=== PATIENT | female | born 1990 | race Asian ===

== ENCOUNTER 2017-09-28 21:17 | Emergency (ER) | payer OTHER ==
[~2017-09-28 21:17] MED LIST: PREN1CAP7 PO; ZANT150T2 PO
--- NOTE | 2017-09-28 22:37 | PD ---
HPI Chief Complaint ctxs Date Seen: Sep 28, 2017 Time Seen: 22:26 Travel History International Travel<30 Days: No Contact w/Intl Traveler<30Days: No Known Affected Area: No History of Present Illness HPI pt. is a @ 40 weeks present w/ c/o ctxs. pt. 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 pt. states contractions thruout the day and have increased in freq and intensity. +FM, no lof/vb. pt. cervix 1-/high. no change during monitoring period. Weeks Gestation: 40 Para: 0 : 1 History Past Medical History Medical History: Denies Significant Hx Obstetric History Obstetric History Past Surgical History Surgical History: No Previous Surgery Family History Family History: Negative Social History Alcohol Use: No Tobacco Use: No Substance Abuse: No Allergies-Medications (Allergen,Severity, Reaction): Coded Allergies: No Known Allergies (Verified Adverse Reaction, Unknown, 09/28/17) Home Meds Active Scripts Ranitidine (Zantac) 150 Mg Tab, 150 MG PO BID for Reduce Stomach Acid, #60 TAB 7 Refills Prov:Jessica VazquezP 06/13/17 W/O Vit A W/ Fe Fumar (Citranatal [place]) 27-1-260 Mg Cap, 1 CAP PO DAILY for Nutritional Supplement, #30 CAP 3 Refills Prov:Jessica Vazquez [facility] 06/13/17 W/O Vit A W/ Fe Fumar (Citranatal [place]) 27-1-260 Mg Cap, 1 CAP PO DAILY for Nutritional Supplement, #30 CAP 4 Refills Prov:Lupe Ch CNM [facility] 03/28/17 Review of Systems Except as stated in HPI: all other systems reviewed are Neg Physical Exam Narrative GENERAL: Well-nourished, well-developed patient. SKIN: Warm and dry. HEAD: Normocephalic and atraumatic. EYES: No scleral icterus. No injection or drainage. ENT: No nasal drainage noted. Mucous membranes pink. Airway patent. NECK: Supple, trachea midline. No JVD. CARDIOVASCULAR: Regular rate and rhythm without murmurs, gallops, or rubs. RESPIRATORY: Breath sounds equal bilaterally. No accessory muscle use. BREASTS: Bilateral exam showed no masses , no retractions, no nipple discharge. ABDOMEN/GI: Abdomen soft, non-tender, bowel sounds present, no rebound, no guarding Gravid GENITOURINARY: External Genitalia: intact and normal in appearance Dilatation: 1-2 Effacement: 90 Station: high Uterine Contractions: q9 min FHT's: Category: 1 Reactive:+ Variability: mod EXTREMITIES: No cyanosis or edema. BACK: Nontender without obvious deformity. No CVA tenderness. NEUROLOGICAL: Awake and alert. Motor and sensory grossly within normal limits. Five out of 5 muscle strength in all muscle groups. Normal speech. Data Data Vital Signs Reviewed: Yes Orders Orders Hearing Screen Coordinator Clear For Discharge (09/28/17 ) [facility] Medical Record Reviewed: Yes Plan pt. to be d/c to home. not in active labor. fht reassuring. condition d/w pt thru still operator whiskey. all ? answered. given precautions for return. f/u as sched. Stu Mckeon Jr., MD Sep 28, 2017 22:37
== END 2017-09-28 22:54 | disposition home or self-care (01) ==
LOC: HOBED 21:17
DX: O26.893 Other specified pregnancy related conditions, third trimester (principal); Z3A.40 40 weeks gestation of pregnancy
CPT/HCPCS: 99284

== ENCOUNTER 2017-09-29 03:18 | Inpatient (IN) | payer OTHER ==
[2017-09-29] VITALS (149 sets, daily range): BP systolic 75–131; BP diastolic 34–86; PULSE 81–194; RESP 16–20; TEMP 98.1–98.8; O2SAT 97–98
[~2017-09-29] VITALS: Ht 160 cm; Wt 63.0 kg
[2017-09-29] MEDS ORDERED: fentaNYL 2MCG-BUPIV 0.125% INJ 100 ML ONE (04:37)
[2017-09-29] MEDS ORDERED: ePHEDrine/NS 25 MG/5 ML SYRINGE ONE (04:37)
[2017-09-29] MEDS ORDERED: LACTATED RINGER'S 1000 ML INJ 1,000 ML IV PRN (04:40)
[2017-09-29] MEDS: LACTATED RINGER'S 1000 ML INJ 1,000 ML IV SCH ×2 (04:40→10:58)
[2017-09-29] MEDS ORDERED: OXYTOCIN 30 UNITS-500ML PREMIX 500 ML IV ONE (04:45)
[2017-09-29] MEDS ORDERED: MINERAL OIL 10 ML VIAL TOPICAL PRN (04:45)
[2017-09-29] MEDS ORDERED: CITRIC ACID-SODIUM CITRATE LIQ 30 ML UDC PO SCH (04:45)
[2017-09-29] MEDS ORDERED: LIDOCAINE HCL 1% 50 ML VIAL I-DERMAL PRN (04:45)
[2017-09-29] MEDS ORDERED: LIDOCAINE HCL 1% 50 ML VIAL INFIL PRN (04:45)
[2017-09-29] MEDS ORDERED: SODIUM CHLORID 0.9% 500 ML INJ 500 ML IV PRN (04:45)
[2017-09-29 04:49] LABS: AUTOMATED NEUTROPHIL # 15.2 TH/MM3 (1.8-7.7); BASOPHIL % 0.2 % (0.0-2.0); EOSINOPHIL % 0.1 % (0.0-4.0); HEMATOCRIT 39.7 % (35.0-46.0); HEMOGLOBIN 13.4 GM/DL (11.6-15.3); LYMPH % 7.8 % (9.0-44.0); LYMPHOCYTE # 1.3 TH/MM3 (1.0-4.8); MEAN CELL VOLUME 92.8 FL (80.0-100.0); MEAN CORPUSCULAR HEMOGLOBIN 31.3 PG (27.0-34.0); MEAN CORPUSCULAR HGB CONC 33.7 % (32.0-36.0); MEAN PLATELET VOLUME 8.8 FL (7.0-11.0); MONO % 3.1 % (0.0-8.0); MONOCYTE # 0.5 TH/MM3 (0-0.9); NEUT % 88.8 % (16.0-70.0); PLATELET COUNT 295 TH/MM3 (150-450); RED BLOOD COUNT 4.28 MIL/MM3 (4.00-5.30); RED CELL DISTRIBUTION WIDTH 13.8 % (11.6-17.2); WHITE BLOOD COUNT 17.1 TH/MM3 (4.0-11.0)
--- NOTE | 2017-09-29 04:49 | HHI.HP ---
History & Physical H&P HPI Chief Complaint ctxs Date Seen: Sep 29, 2017 Time Seen: 04:43 Travel History International Travel<30 Days: No Contact w/Intl Traveler<30Days: No Known Affected Area: No History of Present Illness HPI pt. is a 27 y/o @ 40 1/7 weeks present w/ c/o ctxs. pt. seen earlier for ctxs, and now she says they are more frequent and more intense. +FM, no lof/ vb. pt. cervix 5/80/-2 Weeks Gestation: 40 Para: 0 : 1 History (Limited) History Past Medical History Medical History: Denies Significant Hx Obstetric History Obstetric History Past Surgical History Surgical History: No Previous Surgery Family History Family History: Negative Social History Alcohol Use: No Tobacco Use: No Substance Abuse: No Allergies-Medications Allergies-Medications (Allergen,Severity, Reaction): Coded Allergies: No Known Allergies (Verified Adverse Reaction, Unknown, 09/29/17) Home Meds Active Scripts W/O Vit A W/ Fe Fumar (Citranatal [place]) 27-1-260 Mg Cap, 1 CAP PO DAILY for Nutritional Supplement, #30 CAP 3 Refills Prov:Jessica Vazquez [facility] 06/13/17 W/O Vit A W/ Fe Fumar (Citranatal [place]) 27-1-260 Mg Cap, 1 CAP PO DAILY for Nutritional Supplement, #30 CAP 4 Refills Prov:Lupe Ch CNM [facility] 03/28/17 Discontinued Scripts Ranitidine (Zantac) 150 Mg Tab, 150 MG PO BID for Reduce Stomach Acid, #60 TAB 7 Refills Prov:Jessica Vazquez [facility] 06/13/17 ROS Review of Systems Except as stated in HPI: all other systems reviewed are Neg Physical Exam Physical Exam Narrative GENERAL: Well-nourished, well-developed patient. SKIN: Warm and dry. HEAD: Normocephalic and atraumatic. EYES: No scleral icterus. No injection or drainage. ENT: No nasal drainage noted. Mucous membranes pink. Airway patent. NECK: Supple, trachea midline. No JVD. CARDIOVASCULAR: Regular rate and rhythm without murmurs, gallops, or rubs. RESPIRATORY: Breath sounds equal bilaterally. No accessory muscle use. BREASTS: Bilateral exam showed no masses , no retractions, no nipple discharge. ABDOMEN/GI: Abdomen soft, non-tender, bowel sounds present, no rebound, no guarding Gravid GENITOURINARY: External Genitalia: intact and normal in appearance Dilatation: 5 Effacement: 80 Station: high Membranes: intact Uterine Contractions:q2 mins FHT's: Category: 1 Reactive: + Variability: mod EXTREMITIES: No cyanosis or edema. BACK: Nontender without obvious deformity. No CVA tenderness. NEUROLOGICAL: Awake and alert. Motor and sensory grossly within normal limits. Five out of 5 muscle strength in all muscle groups. Normal speech. Data Data Data Vital Signs Reviewed: Yes Orders Orders Ob (2e) Additional Admit Info (09/29/17 03:55) Complete Blood Count With Diff (09/29/17 04:32) Abo/Rh Blood Type (09/29/17 04:32) Hold Clot (09/29/17 04:32) Ob/Psych Drug Screen, Urine (09/29/17 04:32) Urinalysis - C+S If Indicated (09/29/17 04:32) Specimen To Be Collected PRN (09/29/17 04:32) Fentanyl 2mcg-Bupiv 0.125% Inj (Fentanyl (09/29/17 04:37) Ephedrine/Ns 25 Mg/5 Ml Syr (Ephedrine/N (09/29/17 04:37) Code Status (09/29/17 04:40) Vital Signs (Adult) .Per protocol (09/29/17 04:40) Activity Oob Ad Saranya (09/29/17 04:40) Heart (09/29/17 04:40) Amnioinfusion (09/29/17 04:40) Urinary Catheter Management .ONCE (09/29/17 04:40) Diet Liquid (09/29/17 Breakfast) Lactated Ringer's 1000 Ml Inj (Lr 1000 M (09/29/17 04:40) Lactated Ringer's 1000 Ml Inj (Lr 1000 M (09/29/17 04:40) Sodium Chlorid 0.9% 500 Ml Inj (Ns 500 M (09/29/17 04:45) Sodium Chlor 0.9% 1000 Ml Inj (Ns 1000 M (09/29/17 05:00) Lidocaine 1% Inj (50 Ml) (Xylocaine 1% I (09/29/17 04:45) Citric Acid-Sodium Citrate Liq (Bicitra (09/29/17 04:45) Fentanyl Inj (Fentanyl Inj) (09/29/17 04:45) Fentanyl Inj (Fentanyl Inj) (09/29/17 04:45) Resp Oxygen Non Rebreathe Mask (09/29/17 ) ^ Epidural / Intrathecal Infus (09/29/17 04:40) Oxytocin 30 Units-500ml Premix (Pitocin (09/29/17 04:45) Lidocaine 1% Inj (50 Ml) (Xylocaine 1% I (09/29/17 04:45) Light Mineral Oil (Muri-Lube Oil) (09/29/17 04:45) Group B Strep: Negative Labs Laboratory Tests Test 09/29/17 03:35 09/29/17 03:58 MDM MDM Medical Record Reviewed: Yes Plan pt. in active labor. pt. to be admitted. fht reassuring. fentanyl vs epidural for pain. expect . will continue to monitor. Diagnosis Diagnosis: Primary Impression: Uterine contractions during Additional Impression: 40 weeks gestation of Stu Mckeon Jr., MD Sep 29, 2017 04:49
[2017-09-29] MEDS ORDERED: SODIUM CHLOR 0.9% 1000 ML INJ 1,000 ML IV PRN (05:00)
[2017-09-29 05:06] LABS: BACTERIA, URINE RARE /hpf; BILIRUBIN, URINE NEG (NEG); BLOOD, URINE MOD (NEG); GLUCOSE,URINE NEG (NEG); KETONE, URINE NEG (NEG); MUCUS URINE FEW /lpf (OCC); NITRITE,URINE NEG (NEG); SQUAMOUS EPITHELIAL CELL URINE 4 /hpf (0-5); URINE COLOR LIGHT-YELLOW (YELLW/STRAW); URINE LEUKOCYTE ESTERASE MOD (NEG)
[2017-09-29] MEDS ORDERED: fentaNYL 2MCG-BUPIV 0.125% 100 ML EPIDURAL SCH (05:45)
[2017-09-29] MEDS ORDERED: DO NOT ADMINISTER ANTICOAGULANTS PRN (05:45)
[2017-09-29] MEDS ORDERED: NO SYSTEM NARCOTICS PRN (05:45)
[2017-09-29] MEDS ORDERED: ePHEDrine/NS 25 MG/5 ML SYRINGE IV PUSH PRN (05:45)
[2017-09-29] MEDS ORDERED: PHENYLEPH/NS 1000 MCG/10 ML SYR ONE (07:26)
[2017-09-29] MEDS ORDERED: PHENYLEPH/NS 1000 MCG/10 ML SYR IV PRN (11:00)
[2017-09-29] MEDS ORDERED: OXYTOCIN 30 UNITS-500ML PREMIX 500 ML IV PRN (11:00)
[2017-09-29] MEDS ORDERED: LIDOCAINE HCL 1% PF 30 ML VIAL ONE (12:48)
[2017-09-29] MEDS ORDERED: WITCH HAZEL 50%/GLYCERIN 12.5% 40 PAD JAR TOPICAL PRN (14:00)
[2017-09-29] MEDS ORDERED: SODIUM CHLORIDE 0.9% FLUSH 10 ML FLUSH IV FLUSH PRN (14:00)
[2017-09-29] MEDS ORDERED: DOCUSATE SODIUM 50 MG/SENNA 8.6 MG TAB PO PRN (14:00)
[2017-09-29] MEDS ORDERED: ALUMINUM/MAGNESIUM/SIMETH 30 ML CUP PO PRN (14:00)
[2017-09-29] MEDS ORDERED: ONDANSETRON ODT 4 MG TAB PO PRN (14:00)
[2017-09-29] MEDS ORDERED: ZOLPIDEM TARTRATE 5 MG TAB PO PRN (14:00)
[2017-09-29] MEDS ORDERED: BENZOCAINE 20% TOPICAL SPRAY 60 ML CAN TOPICAL PRN (14:00)
[2017-09-29] MEDS ORDERED: IBUPROFEN 800 MG TAB PO PRN (14:00)
[2017-09-29] MEDS ORDERED: ACETAMINOPHEN 325 MG TAB PO PRN (14:00)
[2017-09-29] MEDS ORDERED: OXYTOCIN 30 UNITS-500ML PREMIX 500 ML IV SCH (14:00)
--- NOTE | 2017-09-29 14:09 | PD.OB.DELI ---
Weeks gestation: 40 Medical induction start date: Sep 29, 2017 Medical induction start time: 10:30 Anesthesia: Epidural Episiotomy: None Vaginal Delivery: Normal, Spontaneous Presentation: Occiput anterior, Vertex Nuchal Cord: x1 Delayed cord clamping (45 sec): Yes Infant: Female, Single Delivery date: Sep 29, 2017 Delivery time: 13:32 One Minute : 8 Five Minute : 9 Weight: 2645g Placenta: Spontaneous delivery, Intact Laceration: Perineal laceration, 2 deg Repair: Vicryl running Estimated blood loss: 300cc Additional Information Dr Montoya supervised, Dr Turpin delivered and Dr Jh Jacob assisted. There was a 2nd degree vaginal and perineal laceration repaired with vicryl running and a right labial laceration repaired with vicryl interrupted sutures. Lidocaine local anesthesia was injected due to pt feeling some pressure vs pain during suturing. Elbert Turpin MD R1 Sep 29, 2017 14:09
[2017-09-29] MEDS ORDERED: DIPHTH/TETANUS/ACEL PERTUSSIS (BOOSTER) 0.5 ML VIAL/PFS IM ONE (16:00)
[2017-09-29] MEDS ORDERED: MEASLES, MUMPS, RUBELLA VACCINE 0.5 ML VIAL SQ ONE (16:00)
[2017-09-29] MEDS ORDERED: SODIUM CHLORIDE 0.9% FLUSH 10 ML FLUSH IV FLUSH SCH (21:00)
[2017-09-30 08:16] VITALS: BP 96/61; PULSE 59; RESP 16; TEMP 98
--- NOTE | 2017-09-30 08:53 | HHI.OB ---
Subjective Post Day: 1 Remarks day # 1. AFVSS overnight. Decreased lochia. Denies dysuria. No breast tenderness. She is feeding the baby via breast and bottle. She is concerned about her milk production. Appetite good. No nausea or vomiting. Ambulating well. Denies calf pain or shortness of breath. Otherwise, she is doing well this morning and has no other concerns. [employer] [facility] [id number] used for [place] interpretation during encounter. Objective Vitals/I&O Vital Signs Date Time Temp Pulse Resp B/P (MAP) Pulse Ox O2 Delivery O2 Flow Rate FiO2 09/29/17 20:00 98.4 81 18 101/62 (75) 97 09/29/17 16:05 98.2 81 20 98 09/29/17 16:05 93/60 (71) 09/29/17 15:30 95 101/55 (70) 09/29/17 15:19 88 104/62 (76) 09/29/17 15:18 18 09/29/17 15:00 105 89/56 (67) 09/29/17 14:50 18 09/29/17 14:45 98 96/55 (69) 09/29/17 14:37 104 100/58 (72) 09/29/17 14:35 18 09/29/17 14:30 109 87/60 (69) 09/29/17 14:16 98 106/77 (87) 09/29/17 14:14 18 09/29/17 14:06 100 100/63 (75) 09/29/17 14:05 98.4 09/29/17 14:05 18 09/29/17 14:00 97 106/66 (79) 09/29/17 13:00 137 09/29/17 13:00 124 108/79 (89) 09/29/17 12:58 98.1 09/29/17 12:58 18 09/29/17 12:55 120 09/29/17 12:50 129 09/29/17 12:45 134 18 12:40 120 18 12:35 127 09/29/17 12:30 142 09/29/17 12:30 120 106/71 (83) 09/29/17 12:25 128 09/29/17 12:20 132 09/29/17 12:15 126 09/29/17 12:10 126 09/29/17 12:05 110 09/29/17 12:00 20 09/29/17 12:00 112 09/29/17 12:00 118 114/73 (87) 18 11:55 121 18 11:50 112 18 11:45 112 18 11:40 99 09/29/17 11:35 109 09/29/17 11:30 107 99/55 (70) 09/29/17 11:26 18 09/29/17 11:25 121 09/29/17 11:20 112 09/29/17 11:15 110 09/29/17 11:10 124 09/29/17 11:05 123 09/29/17 11:00 120 103/65 (78) 09/29/17 11:00 123 09/29/17 10:55 113 09/29/17 10:50 124 09/29/17 10:45 125 105/65 (78) 09/29/17 10:45 113 09/29/17 10:40 113 09/29/17 10:35 16 09/29/17 10:35 127 09/29/17 10:30 112 101/59 (73) 09/29/17 10:30 106 09/29/17 10:25 114 09/29/17 10:25 128 92/48 (63) 09/29/17 10:23 124 77/41 (53) 09/29/17 10:20 107 09/29/17 10:20 117 103/56 (72) 09/29/17 10:18 124 84/51 (62) 09/29/17 10:15 112 09/29/17 10:15 115 92/48 (63) 09/29/17 10:13 116 84/46 (59) 09/29/17 10:10 117 103/68 (80) 09/29/17 10:10 95 09/29/17 10:07 119 89/47 (61) 09/29/17 10:05 123 09/29/17 10:00 126 83/45 (58) 09/29/17 10:00 129 09/29/17 09:55 120 09/29/17 09:55 98.8 09/29/17 09:54 18 09/29/17 09:50 127 09/29/17 09:45 127 09/29/17 09:45 133 98/62 (74) 09/29/17 09:40 128 09/29/17 09:35 120 09/29/17 09:30 113 102/59 (73) 09/29/17 09:30 113 09/29/17 09:25 112 09/29/17 09:20 114 09/29/17 09:15 113 09/29/17 09:15 115 108/70 (83) 09/29/17 09:10 109 09/29/17 09:08 18 09/29/17 09:05 115 09/29/17 09:00 108 09/29/17 09:00 113 109/67 (81) 09/29/17 08:55 118 09/29/17 08:50 112 Objective Remarks GENERAL: Well-nourished, well-developed patient. CARDIOVASCULAR: Regular rate and rhythm without murmurs, gallops, or rubs. RESPIRATORY: Breath sounds equal bilaterally. No accessory muscle use. ABDOMEN/GI: Abdomen soft, non-tender. Fundus: Firm, non-tender at umbilicus. GENITOURINARY: Light to moderate bleeding. EXTREMITIES: No cyanosis or edema, non-tender, without signs of DVT. Medications and IVs Current Medications Medications (Trade) Dose Ordered Sig/Chandana Route Start Time Stop Time Status Last Admin Lactated Ringer's 1,000 ml @ 125 mls/hr Q8H IV 09/29/17 04:40 09/29/17 10:58 Lactated Ringer's 1,000 ml @ 3,000 mls/hr Q20M PRN IV 09/29/17 04:40 Sodium Chloride 500 ml @ 1,000 mls/hr ONCE PRN IV 09/29/17 04:45 10/06/17 04:44 Sodium Chloride 1,000 ml @ 100 mls/hr Q10H PRN IV 09/29/17 05:00 (Xylocaine 1% Inj (50 ml)) 0.1 ml UNSCH X1 PRN I-DERMAL 09/29/17 04:45 10/02/17 04:44 (Bicitra Liq) 30 ml NUTRITION AIDE PO 09/29/17 04:45 10/03/17 04:44 (fentaNYL INJ) 50 mcg Q1H PRN IV PUSH 09/29/17 04:45 (fentaNYL INJ) 100 mcg Q1H PRN IV PUSH 09/29/17 04:45 (Xylocaine 1% Inj (50 ml)) 10 ml UNSCH X1 PRN INFIL 09/29/17 04:45 10/01/17 04:44 (Muri-Lube Oil) 10 ml UNSCH PRN TOPICAL 09/29/17 04:45 09/29/17 14:26 Fentanyl/ Bupivacaine HCl 100 ml @ 0 mls/hr TITRATE EPIDURAL 09/29/17 05:45 Oxytocin 500 ml @ 0 mls/hr TITRATE PRN IV 09/29/17 11:00 09/29/17 10:58 (Neosynephrine/ NS 1000 Mcg/10ml Syr) 100 mcg Q5M PRN IV 09/29/17 11:00 (NS Flush) 2 ml BID IV FLUSH 09/29/17 21:00 (NS Flush) 2 ml UNSCH PRN IV FLUSH 09/29/17 14:00 (Tylenol) 650 mg Q4H PRN PO 09/29/17 14:00 (Motrin) 800 mg Q8H PRN PO 09/29/17 14:00 09/29/17 14:37 (Americaine 20% Top Spr) 1 spray Q4H PRN TOPICAL 09/29/17 14:00 (Tucks Pads) 1 applic QID PRN TOPICAL 09/29/17 14:00 09/29/17 16:08 (Kandice-Colace) 2 tab Q12H PRN PO 09/29/17 14:00 (Ambien) 5 mg HS PRN PO 09/29/17 14:00 (Mag-Al Plus Susp Liq) 15 ml Q8H PRN PO 09/29/17 14:00 (Zofran Odt) 4 mg Q6H PRN PO 09/29/17 14:00 Assessment/Plan Assessment and Plan 27 y/o female who is PPD# 1 s/p . -Continue routine care. -Acetaminophen and Motrin PRN pain. -Encouraged OOB. Advised pelvic rest for 6 wks. -Re: ctrl, did not discuss today, to discuss tomorrow -Anticipate discharge tomorrow DW Dr. Lindsay Discharge Planning D/C tomorrow Estefany Jacob MD R2 Sep 30, 2017 08:53
[2017-09-30 19:56] VITALS: BP 103/69; PULSE 64; RESP 18; TEMP 97.6
--- NOTE | 2017-10-01 08:18 | HHI.OB ---
Subjective Post Day: 2 Remarks Pt seen and examined this morning. day # 2 AFVSS overnight. Decreased lochia. Denies dysuria. No breast tenderness. She is feeding the baby via breast. Appetite good. No nausea or vomiting. Patient has not yet had a bowel movement, but does endorse bowel gas. Ambulating well. Denies calf pain or shortness of breath. Otherwise, she is doing well this morning and has no other concerns. Objective Vitals/I&O Vital Signs Date Time Temp Pulse Resp B/P (MAP) Pulse Ox O2 Delivery O2 Flow Rate FiO2 09/30/17 19:56 97.6 64 18 103/69 (80) Objective Remarks GENERAL: Well-nourished, well-developed patient. CARDIOVASCULAR: Regular rate and rhythm without murmurs, gallops, or rubs. RESPIRATORY: Breath sounds equal bilaterally. No accessory muscle use. ABDOMEN/GI: Abdomen soft, non-tender. Fundus: Firm, non-tender at umbilicus. GENITOURINARY: Light to moderate bleeding. EXTREMITIES: No cyanosis or edema, non-tender, without signs of DVT. Medications and IVs Current Medications Medications (Trade) Dose Ordered Sig/Chandana Route Start Time Stop Time Status Last Admin Lactated Ringer's 1,000 ml @ 125 mls/hr Q8H IV 09/29/17 04:40 09/29/17 10:58 Lactated Ringer's 1,000 ml @ 3,000 mls/hr Q20M PRN IV 09/29/17 04:40 Sodium Chloride 500 ml @ 1,000 mls/hr ONCE PRN IV 09/29/17 04:45 10/06/17 04:44 Sodium Chloride 1,000 ml @ 100 mls/hr Q10H PRN IV 09/29/17 05:00 (Xylocaine 1% Inj (50 ml)) 0.1 ml UNSCH X1 PRN I-DERMAL 09/29/17 04:45 10/02/17 04:44 (Bicitra Liq) 30 ml FINANCIAL SERVICES REP PO 09/29/17 04:45 10/03/17 04:44 (fentaNYL INJ) 50 mcg Q1H PRN IV PUSH 09/29/17 04:45 (fentaNYL INJ) 100 mcg Q1H PRN IV PUSH 09/29/17 04:45 (Muri-Lube Oil) 10 ml UNSCH PRN TOPICAL 09/29/17 04:45 09/29/17 14:26 Fentanyl/ Bupivacaine HCl 100 ml @ 0 mls/hr TITRATE EPIDURAL 09/29/17 05:45 Oxytocin 500 ml @ 0 mls/hr TITRATE PRN IV 09/29/17 11:00 09/29/17 10:58 (Neosynephrine/ NS 1000 Mcg/10ml Syr) 100 mcg Q5M PRN IV 09/29/17 11:00 (NS Flush) 2 ml BID IV FLUSH 09/29/17 21:00 (NS Flush) 2 ml UNSCH PRN IV FLUSH 09/29/17 14:00 (Tylenol) 650 mg Q4H PRN PO 09/29/17 14:00 (Motrin) 800 mg Q8H PRN PO 09/29/17 14:00 09/29/17 14:37 (Americaine 20% Top Spr) 1 spray Q4H PRN TOPICAL 09/29/17 14:00 (Tucks Pads) 1 applic QID PRN TOPICAL 09/29/17 14:00 09/29/17 16:08 (Kandice-Colace) 2 tab Q12H PRN PO 09/29/17 14:00 (Ambien) 5 mg HS PRN PO 09/29/17 14:00 (Mag-Al Plus Susp Liq) 15 ml Q8H PRN PO 09/29/17 14:00 (Zofran Odt) 4 mg Q6H PRN PO 09/29/17 14:00 Assessment/Plan Assessment and Plan 27 y/o female who is PPD# 2 s/p -Continue routine care -Acetaminophen and Motrin PRN pain -Encouraged OOB. Advised pelvic rest for 6 wks -Re: ctrl, patient states she would not like any type of contraception at this time -Patient voiced verbal understanding regarding pelvic rest and OB follow up at 6 weeks gestation -Anticipate discharge today MADELAINE Kirkpatrick Discharge Planning D/C today Parag Cullen MD R2 Oct 01, 2017 08:18
[2017-10-01] MEDS ORDERED: IBUP1TAB7 PO (08:19)
[2017-10-01] MEDS ORDERED: PERI PO (08:19)
--- NOTE | 2017-10-01 08:20 | HHI.DCPOC ---
Discharge Care Plan Diagnosis: (1) (spontaneous vaginal delivery) Report Symptoms to Your Doctor -Temperature above 100.5 degrees -Redness, of incision or excessive or foul smelling drainage -Unusual pain or calf pain -Increased vaginal bleeding -Painful or difficulty urinating -Feelings of extreme sadness or anxiety after 2 weeks Goals to Promote Your Health * To prevent worsening of your condition and complications * To maintain your health at the optimal level Directions to Meet Your Goals Take your medications as prescribed Follow your dietary instruction Follow activity as directed Ensure plenty of rest for recovery Drink fluids for hydration Keep your appointments as scheduled Take your immunizations and boosters as scheduled If your symptoms worsen call your PCP, if no PCP go to Urgent Care Center or Emergency Room Smoking is Dangerous to Your Health. Avoid second hand smoke Call the 24-hour crisis hotline for domestic abuse at Parag Cullen MD R2 Oct 01, 2017 08:20
[2017-10-01 08:25] VITALS: BP 110/78; PULSE 76; RESP 18; TEMP 98.2
== END 2017-10-01 12:19 | disposition home or self-care (01) | DRG 775 ==
LOC: HOBED 03:18 → H2EB 03:59 → H1EA 15:37
PROVIDERS: ADMIT Obstetrics & Gynecology; ATTEND Obstetrics & Gynecology
PROC: 3E0R3BZ Introduction of Anesthetic Agent into Spinal Canal, Percutaneous Approach (ICD-10-PCS; 2017-09-29)
PROC: 00HU33Z Insertion of Infusion Device into Spinal Canal, Percutaneous Approach (ICD-10-PCS; 2017-09-29)
PROC: 10E0XZZ Delivery of Products of Conception, External Approach (ICD-10-PCS; principal; 2017-09-30)
PROC: 0KQM0ZZ Repair Perineum Muscle, Open Approach (ICD-10-PCS; 2017-09-30)
PROC: 0UQMXZZ Repair Vulva, External Approach (ICD-10-PCS; 2017-09-30)
DX: O70.1 Second degree perineal laceration during delivery (principal); Z37.0 Single live birth; Z3A.40 40 weeks gestation of pregnancy
CPT/HCPCS: 80307; 81001; 85025; 86900; 86901; 90715; 99283; G0481; J2370; J2590; J7120